=== PATIENT | male | born 1995 | race African-American/Black ===

== ENCOUNTER 2020-12-15 12:26 | Emergency (ER) | payer SELFPAY ==
[~2020-12-15] VITALS: Ht 175.3 cm; Wt 63.5 kg
--- NOTE | 2020-12-15 13:02 | NUR ---
The patient bibs for c/o right thigh abcess x 1 week, 7/10 pain scale. Denies numbness/tingling in the extremity. Will continue to monitor the patient.
[2020-12-15] MEDS ORDERED: LIDOCAINE 1%-EPI 1:100,000 20 ML VIAL ONE (14:01)
[2020-12-15] MEDS ORDERED: SULF1TAB48 PO (14:22)
[2020-12-15] MEDS ORDERED: SULFAMETH/TRIMETH 800/160 MG 1 UDTAB TABLET ONE (14:27)
--- NOTE | 2020-12-15 14:29 | NUR ---
The patient is alert and oriented x4. Patient discharged to home in stable condition. Written and verbal after care instructions given. Patient verbalizes understanding of instruction.
[2020-12-15] MEDS ORDERED: SULFAMETH/TRIMETH 800/160 MG 1 UDTAB TABLET PO ONE (14:30)
[2020-12-15 14:43] VITALS: BP 131/85
== END 2020-12-15 14:29 | disposition home or self-care (01) ==
LOC: ER 12:31
DX: L02.415 Cutaneous abscess of right lower limb (principal)
CPT/HCPCS: 10060; 99283; A6403; J3490; A6407